=== PATIENT | female | born 1985 | race Two or more races ===

== ENCOUNTER → 2018-02-06 | Outpatient (CLI) | payer OTHER ==
[~2018-02-06] MED LIST: CATAFLAM50 MG; CYMBALTA60 MG; LOPRESSOR 100 MG PO; LOPRESSOR25 MG PO; METOPROLOL ER-1 EAC1; ORPH100T PO; TOPROL XL100 M1; TOPROL XL100 M1 PO; ULTRAM50 MG
== END | disposition home or self-care (01) ==
LOC: PPHC 15:00
DX: Z76.0 Encounter for issue of repeat prescription (principal)

== ENCOUNTER 2018-04-25 17:14 | Emergency (ER) | payer OTHER ==
[~2018-04-25] VITALS: Ht 165.1 cm; Wt 65.8 kg
== END 2018-04-25 23:00 | disposition home or self-care (01) ==
LOC: ER 17:14
DX: I10 Essential (primary) hypertension (principal); M62.830 Muscle spasm of back; G44.209 Tension-type headache, unspecified, not intractable

== ENCOUNTER 2018-05-09 09:16 | Outpatient (CLI) | payer OTHER | END 2018-05-09 16:59 | disposition home or self-care (01) | LOC: NUCLEAR 09:16 | DX: M05.79 Rheumatoid arthritis with rheumatoid factor of multiple sites without organ or systems involvement (principal); M87.059 Idiopathic aseptic necrosis of unspecified femur | CPT/HCPCS: 78315; A9503 ==

== ENCOUNTER 2018-05-29 06:40 | Outpatient (CLI) | payer OTHER | END 2018-05-29 06:50 | disposition home or self-care (01) | LOC: LAB 06:40 | DX: E28.2 Polycystic ovarian syndrome (principal); N80.3 Endometriosis of pelvic peritoneum ==

== ENCOUNTER 2018-05-29 11:53 | Outpatient (CLI) | payer OTHER | END 2018-05-29 11:54 | disposition home or self-care (01) | LOC: SONOGRAMA 11:53 | DX: E28.2 Polycystic ovarian syndrome (principal) ==

== ENCOUNTER 2018-06-27 06:44 | Outpatient (CLI) | payer OTHER | END 2018-06-27 06:57 | disposition home or self-care (01) | LOC: LAB 06:44 | DX: I10 Essential (primary) hypertension (principal); E11.9 Type 2 diabetes mellitus without complications; E03.8 Other specified hypothyroidism; E55.9 Vitamin D deficiency, unspecified; E78.2 Mixed hyperlipidemia; M32.10 Systemic lupus erythematosus, organ or system involvement unspecified; M05.79 Rheumatoid arthritis with rheumatoid factor of multiple sites without organ or systems involvement; M33.20 Polymyositis, organ involvement unspecified; M10.09 Idiopathic gout, multiple sites; N39.0 Urinary tract infection, site not specified; M45.0 Ankylosing spondylitis of multiple sites in spine ==

== ENCOUNTER 2018-07-25 12:26 | Emergency (ER) | payer OTHER ==
[~2018-07-25] VITALS: Ht 160 cm; Wt 65.8 kg
[2018-07-25] MEDS ORDERED: NORVASC5 MG PO (16:01)
== END 2018-07-25 16:02 | disposition home or self-care (01) ==
LOC: ER 12:26
DX: I10 Essential (primary) hypertension (principal); R51 Headache

== ENCOUNTER 2018-09-27 07:25 | Outpatient (CLI) | payer OTHER ==
[~2018-09-27 07:25] MED LIST changes: +NORVASC5 MG PO
== END 2018-09-27 08:57 | disposition home or self-care (01) ==
LOC: LAB 07:25
DX: Z11.3 Encounter for screening for infections with a predominantly sexual mode of transmission (principal)

== ENCOUNTER 2018-10-15 14:10 | Emergency (ER) | payer OTHER ==
[~2018-10-15] VITALS: Ht 160 cm; Wt 65.8 kg
[2018-10-15] MEDS ORDERED: TOPROL XL200 MG (14:44)
[2018-10-15] MEDS ORDERED: CYMBALTA60 MG PO (16:14)
[2018-10-15] MEDS ORDERED: TRAMADOL HCL50 MG PO (16:14)
== END 2018-10-15 16:30 | disposition home or self-care (01) ==
LOC: ER 14:10
DX: K52.89 Other specified noninfective gastroenteritis and colitis (principal)

== ENCOUNTER 2018-10-18 06:44 | Outpatient (CLI) | payer OTHER ==
[~2018-10-18 06:44] MED LIST changes: +CYMBALTA60 MG PO; +TOPROL XL200 MG; +TRAMADOL HCL50 MG PO
== END 2018-10-18 17:38 | disposition home or self-care (01) ==
LOC: LAB 06:44
DX: I11.9 Hypertensive heart disease without heart failure (principal); R73.01 Impaired fasting glucose; E03.8 Other specified hypothyroidism; E78.2 Mixed hyperlipidemia

== ENCOUNTER 2018-10-18 07:22 | Outpatient (CLI) | payer OTHER | END 2018-10-18 07:28 | disposition home or self-care (01) | LOC: SONOGRAMA 07:22 | DX: I11.9 Hypertensive heart disease without heart failure (principal); R06.09 Other forms of dyspnea ==

== ENCOUNTER 2018-11-13 11:51 | Emergency (ER) | payer OTHER ==
[~2018-11-13] VITALS: Ht 160 cm; Wt 65.8 kg
[2018-11-13] MEDS ORDERED: ZITHROMAX TRI-500 MG PO (15:11)
[2018-11-13] MEDS ORDERED: TUSSI PRES-B L120 M1 PO (15:11)
== END 2018-11-13 15:18 | disposition home or self-care (01) ==
LOC: ER 11:51
DX: B34.9 Viral infection, unspecified (principal); R07.89 Other chest pain

== ENCOUNTER 2019-09-12 06:27 | Outpatient (CLI) | payer OTHER ==
[~2019-09-12 06:27] MED LIST changes: +TUSSI PRES-B L120 M1 PO; +ZITHROMAX TRI-500 MG PO
== END 2019-09-12 06:32 | disposition home or self-care (01) ==
LOC: LAB 06:27
DX: N39.0 Urinary tract infection, site not specified (principal); E78.00 Pure hypercholesterolemia, unspecified; I10 Essential (primary) hypertension; E11.9 Type 2 diabetes mellitus without complications; E03.8 Other specified hypothyroidism; E55.9 Vitamin D deficiency, unspecified; E78.1 Pure hyperglyceridemia; M32.10 Systemic lupus erythematosus, organ or system involvement unspecified; M33.20 Polymyositis, organ involvement unspecified; M05.10 Rheumatoid lung disease with rheumatoid arthritis of unspecified site; M10.09 Idiopathic gout, multiple sites

== ENCOUNTER → 2020-01-05 10:04 | Outpatient (CLI) | payer OTHER | END | disposition home or self-care (01) | LOC: LAB 10:04 | DX: J11.1 Influenza due to unidentified influenza virus with other respiratory manifestations (principal) ==

== ENCOUNTER 2020-01-09 08:48 | Outpatient (CLI) | payer OTHER | END 2020-01-09 09:07 | disposition home or self-care (01) | LOC: LAB 08:48 | DX: J11.1 Influenza due to unidentified influenza virus with other respiratory manifestations (principal) ==

== ENCOUNTER 2020-03-29 13:20 | Outpatient (CLI) | payer OTHER | END 2020-03-29 13:22 | disposition home or self-care (01) | LOC: RAD 13:20 | PROVIDERS: ATTEND General Practice | DX: M54.5 Low back pain (principal); M54.6 Pain in thoracic spine; M54.2 Cervicalgia ==

== ENCOUNTER 2020-06-22 06:00 | Outpatient (CLI) | payer OTHER | END 2020-06-22 15:00 | disposition home or self-care (01) | LOC: PPH VACUNA 06:00 | DX: Z23 Encounter for immunization (principal) ==

== ENCOUNTER → 2020-07-02 07:17 | Outpatient (CLI) | payer OTHER | END | disposition home or self-care (01) | LOC: LAB 07:17 | PROVIDERS: ATTEND Specialist | DX: N93.8 Other specified abnormal uterine and vaginal bleeding (principal); D50.9 Iron deficiency anemia, unspecified ==

== ENCOUNTER → 2020-07-06 | Outpatient (CLI) | payer OTHER | END | disposition home or self-care (01) | LOC: MAMO-SONO 14:45 | PROVIDERS: ATTEND Specialist | DX: Z12.31 Encounter for screening mammogram for malignant neoplasm of breast (principal); N60.11 Diffuse cystic mastopathy of right breast; N60.12 Diffuse cystic mastopathy of left breast ==

== ENCOUNTER → 2022-11-13 07:58 | Outpatient (CLI) | payer OTHER | END | disposition home or self-care (01) | LOC: LAB 07:58 | PROVIDERS: ATTEND Internal Medicine Cardiovascular Disease | DX: I11.9 Hypertensive heart disease without heart failure (principal); E78.2 Mixed hyperlipidemia; E66.09 Other obesity due to excess calories; E03.9 Hypothyroidism, unspecified; Z12.11 Encounter for screening for malignant neoplasm of colon ==

== ENCOUNTER 2022-11-13 09:07 | Outpatient (CLI) | payer OTHER | END 2022-11-13 09:09 | disposition home or self-care (01) | LOC: RAD 09:07 | PROVIDERS: ATTEND Internal Medicine Cardiovascular Disease | DX: I11.9 Hypertensive heart disease without heart failure (principal); I15.8 Other secondary hypertension ==

== ENCOUNTER → 2022-11-14 10:24 | Outpatient (CLI) | payer OTHER | END | disposition home or self-care (01) | LOC: LAB 10:24 | PROVIDERS: ATTEND Internal Medicine Cardiovascular Disease | DX: I11.9 Hypertensive heart disease without heart failure (principal); E78.2 Mixed hyperlipidemia; E66.09 Other obesity due to excess calories; E03.9 Hypothyroidism, unspecified; Z12.11 Encounter for screening for malignant neoplasm of colon ==

== ENCOUNTER 2022-12-12 09:40 | Outpatient (CLI) | payer OTHER | END 2022-12-12 09:46 | disposition home or self-care (01) | LOC: LAB 09:40 | DX: R19.7 Diarrhea, unspecified (principal) ==

== ENCOUNTER → 2022-12-26 11:35 | Outpatient (CLI) | payer OTHER | END | disposition home or self-care (01) | LOC: LAB 11:35 | PROVIDERS: ATTEND Internal Medicine Cardiovascular Disease | DX: E79.0 Hyperuricemia without signs of inflammatory arthritis and tophaceous disease (principal) ==

== ENCOUNTER 2023-03-28 10:10 | Outpatient (CLI) | payer OTHER | END 2023-03-28 10:12 | disposition home or self-care (01) | LOC: SONOGRAMA 10:10 | PROVIDERS: ATTEND Internal Medicine Cardiovascular Disease | DX: R10.31 Right lower quadrant pain (principal); I11.9 Hypertensive heart disease without heart failure; I15.8 Other secondary hypertension; N23 Unspecified renal colic ==

== ENCOUNTER 2023-05-10 07:20 | Outpatient (CLI) | payer OTHER | END 2023-05-10 07:21 | disposition home or self-care (01) | LOC: LAB 07:20 | PROVIDERS: ATTEND Internal Medicine Cardiovascular Disease | DX: I11.9 Hypertensive heart disease without heart failure (principal); E78.2 Mixed hyperlipidemia ==

== ENCOUNTER 2023-10-16 12:20 | Emergency (ER) | payer OTHER ==
[~2023-10-16] VITALS: Ht 162.6 cm; Wt 68.0 kg
[2023-10-16] MEDS ORDERED: TOPROL XL100 M1 PO (13:19)
== END 2023-10-16 14:53 | disposition home or self-care (01) ==
LOC: ER 12:21
DX: M54.89 Other dorsalgia (principal); I10 Essential (primary) hypertension; Z88.0 Allergy status to penicillin; Z88.8 Allergy status to other drugs, medicaments and biological substances